=== PATIENT | male | born 1960 | race African-American/Black ===

== ENCOUNTER 2016-08-23 15:10 | Inpatient (IN) | payer OTHER ==
--- NOTE | ~2016-08-23 | DS ---
Unit #: [id number] #: [id number] Patient: FROY KELLY [id number] [address] [place], [place] [address] [id number] MR#: [id number] NAME: FROY KELLY ROOM: 202 Age: 55 Sex: M Admission Date: 08/23/2016 : 1960 Discharge Date: 08/25/2016 Attending Physician: Gurdeep Garcia M.D. Primary Care Physician: Yumiko Larsen M.D. DISCHARGE SUMMARY PRIMARY CARE PHYSICIAN Dr. Yumiko Larsen. ADMITTING DIAGNOSES Chronic obstructive pulmonary disease exacerbation, pulmonary fibrosis, diabetes mellitus. DISCHARGE DIAGNOSES Chronic obstructive pulmonary disease exacerbation, pulmonary fibrosis, diabetes mellitus. HISTORY OF PRESENTING ILLNESS The patient is a 60-year-old gentleman with a past medical history of pulmonary fibrosis and COPD, who is on 2 L of home oxygen, presented to the emergency room with chief complaint of cough and shortness of breath. HOSPITAL COURSE He was started on oxygen, breathing treatments, steroids, and slowly his breathing improved. He is doing clinically better. He does not smoke. I explained him in detail that he needs to avoid people who are smoking. Passive smoking can be as dangerous as an active smoking. He understands. He is doing clinically better. He will be discharged home on tapering dose of oral steroids. PHYSICAL EXAMINATION On the day of the discharge: VITAL SIGNS: Temperature 97.9, pulse rate 79, respiratory rate 16, blood pressure 125/97. GENERAL: The patient is alert and oriented x3, lying in the bed. No acute distress. HEENT: Normocephalic, atraumatic. No icterus. TAVON. Extraocular muscles are intact. NECK: Supple. No JVD. HEART: S1, S2. Regular rate and rhythm. CHEST: Bilateral equal air entry. Clear to auscultation. ABDOMEN: Soft, nontender. EXTREMITIES: No edema. Normal pulses. DISCHARGE MEDICATIONS Metformin 500 mg p.o. b.i.d., Zithromax 250 mg p.o. daily for 2 more days, prednisone tapering dose, albuterol 3 mL mini-nebs q.4 p.r.n. shortness of breath, Symbicort 2 puffs b.i.d. Unit #: [id number] #: [id number] Patient: FROY KELLY FOLLOWUP He is instructed to follow with his primary care in 1 to 2 weeks. Total time spent in his care 28 minutes. Dictated by..Joey Blank/richard TD: 08/26/2016 02:48 JOB #: [id number] DISCHARGE SUMMARY X X DISCHARGE SUMMARY
--- NOTE | ~2016-08-23 | HP ---
Unit #: [id number] #: [id number] Patient: FROY KELLY [id number] [address] [place], [place] [address] [id number] MR#: [id number] NAME: FROY KELLY ROOM: 202 Age: 55 Sex: M Admission Date: 08/23/2016 : 1960 Attending Physician: Gurdeep Garcia M.D. Primary Care Physician: Yumiko Larsen M.D. HISTORY AND PHYSICAL CHIEF COMPLAINT Shortness of breath. HISTORY OF PRESENTING ILLNESS The patient is a 55-year-old -[place] gentleman with a past medical history of COPD, history of pulmonary fibrosis, presented to the emergency room with a chief complaint of cough and shortness of breath which is worsening in the last two days. He denies any fevers, denies any chills. Complains of cough with production of yellowish sputum. He mentions his family members were sick a couple of weeks ago but they are all better. He did not get his flu vaccine this year. In the emergency room, he was noted to be short of breath and did not respond to the breathing treatment. He is getting admitted. Kindly note - I do not have any influenzae swab at this point and labs are being done. Results are partially available. PAST MEDICAL HISTORY 1. History of COPD. 2. Pulmonary fibrosis. 3. Hypertension. 4. Diabetes mellitus. PAST SURGICAL HISTORY None. MEDICATIONS Home medications include: 1. Symbicort 160/4.5 mcg, two puffs twice daily. 2. Albuterol 3 mL nebulizations four times a day. SOCIAL HISTORY He mentions he used to smoke and quit two months ago. Denies alcohol or illicit drugs. FAMILY HISTORY Father had end stage renal disease. He had colon cancer in the past. SCREENING Patient had a screening colonoscopy done in April [address] Darnell Mariee which was essentially negative and he was recommended to have screening colonoscopy in five years. ALLERGIES Unit #: [id number] #: [id number] Patient: FROY KELLY No known drug allergies. REVIEW OF SYSTEMS Complete review of systems was done and negative except for what is mentioned in the HPI. PHYSICAL EXAMINATION VITAL SIGNS: Temperature 98.2, pulse rate 84, respiratory rate 26, blood pressure 115/81. GENERAL: The patient is alert and oriented x3, lying in the bed, in no acute distress. HEENT: Normocephalic, atraumatic. No icterus. TAVON. Extraocular movements intact. NECK: Supple. No JVD. HEART: S1, S2. Regular rate and rhythm. CHEST: Bilateral equal air entry, bilateral expiratory wheeze. ABDOMEN: Soft, nontender. EXTREMITIES: No edema. Normal pulses. DIAGNOSTIC STUDIES LABORATORY: BMP, influenzae swab are pending. CBC shows WBC 7.6, hemoglobin 15.6, platelet count 171. ASSESSMENT AND PLAN 1. Acute hypoxic respiratory failure: He is on 4 L now and he is initially on 2 L of home oxygen. Will give him steroids, breathing treatments and monitor. Will give him IV Solu-Medrol, p.r.n. breathing treatments and will also start him on Zithromax. Will check the influenzae swab. If it is positive, will treat him with Tamiflu. If not, will try to get him an influenzae vaccine at the time of discharge. 2. History of pulmonary fibrosis. 3. History of diabetes mellitus: He mentioned he is not on any influenzae or any medications. Will check an A1c. Will keep on Accu-Cheks and insulin sliding scales. 4. DVT precautions. 5. Further recommendations per hospital course. Dictated by Joey Amin/nedra TD: 08/24/2016 05:37 JOB #: [id number] Unit #: [id number] #: [id number] Patient: FROY KELLY HISTORY AND PHYSICAL X X HISTORY AND PHYSICAL
--- NOTE | ~2016-08-23 | CR72 ---
[facility] A Service of [facility] [place] RADIOLOGY TEXT RESULTS PATIENT: FROY KELLY LOCATION: A : [birth year] UNIT #: [id number] AGE: [address]: Gurdeep Garcia MD SEX: M ORDER DR: [id number] [facility] [address] [facility]. [place], [place] [address] [id number] MR#: [id number] Acc #: [id number] NAME: FROY KELLY : 1960 SEX: M STUDY DATE/TIME: 08/23/2016 14:31 UNIT: [facility] ROOM: [facility] STUDY DESCRIPTION: CR Chest Single View Portable Attending Physician: Gurdeep Garcia M.D. Ordering Physician: Maria T Calvillo M.D. Primary Care Physician: Yumiko Larsen M.D. MEDICAL IMAGING REPORT This report is preliminary unless electronic signature is present EXAM Portable chest, 08/23/2016 HISTORY Shortness of breath for the past 2 days. TECHNIQUE A single AP view of the chest was obtained and compared with 01/07/2016. FINDINGS The heart and mediastinum have a normal configuration with normal heart size. In the lungs extensive infiltrates are seen ini the mid to lower lung mauricio, predominantly reticular accompanied by peripheral blebs. Overall since the previous examination. No significant progression is noted. There is no evidence of pneumothorax. Vascular markings are normal. No pleural fluid is seen. IMPRESSION Extensive chronic interstitial infiltrates in the uha-fi-nxxjh lung mauricio. No new infiltrates are seen since the previous exam. Normal vascular markings. Dictated by... Jassi Lopez M.D. THIS IS AN ELECTRONICALLY VERIFIED REPORT Jassi Lopez M.D. at 08/24/2016 8:20 AM NELL/ros TD: 08/23/2016 21:17 JOB #: [id number] [facility] A Service of [facility] [place] RADIOLOGY TEXT RESULTS PATIENT: FROY KELLY LOCATION: [facility] 202-01 : [birth year] UNIT #: [id number] AGE: [address]: Gurdeep Garcia MD SEX: M ORDER DR: MEDICAL IMAGING REPORT COPY
[2016-08-23 14:39] LABS: POC - CKMB 1.1 ng/mL (0.0-7.9); POC - TROPONIN <0.05 ng/mL (<=0.05)
[~2016-08-23 15:10] MED LIST: ADVAIR 250-501 EAC1 IH; ADVAIR 250-501 EACH; ADVAIR 250-501 EACH IH; ADVAIR 500-501 EACH IH; ALBUTEROL 0.5ML INH; ALBUTEROL MININEB NEB; ALBUTEROL0.63 MG/3 INH; ALBUTEROL17 G1 IH; ALBUTEROL17 GM INH; ATORVASTATIN CA40 MG PO; AUGMENTIN PO; AZITHROMYCIN500 MG PO; COMBIVENT INH14.7 G1 IH; COMBIVENT U/D3 M1 INH; COMBIVENT14.7 GM INH; CYMBALTA PO; CYMBALTA30 MG PO; DUONEB 2.5-0.5 M3 ML NEB; FOLIC ACID PO; GLIPIZIDE10 MG; GLYBURIDE2.5 M1 PO; GUAIFENESIN600 M1 PO; HYDROCHLOROTHIA25 MG PO; LEVAQUIN PO; LEVAQUIN750 MG PO; MEDROL PO; METFORMIN HCL500 M1 PO; MICRO-K10 MEQ PO; MUCAPHED TABLE1 EACH PO; NICOTINE TRANSD14 MG EXT; NICOTINE TRANSD21 MG EXT; OMEPRAZOLE20 M2 PO; OMNICEF300 MG PO; OXYGEN; POTASSIUM CHLO20 ME1 PO; PREDNISONE PO; PREDNISONE1 MG; PREDNISONE10 MG/DOSE PO; PROAIR HFA8.5 GM IH; PROVENTIL INH0.5 ML; SPIRIVA18 MCG INH; SUBOXONE 8 MG-1 EAC1 SL; SYMBICORT INH; THIAMINE HCL100 MG PO; TUDORZA PRESS400 MCG IH; VIBRAMYCIN100 M1 PO; Z-PAK; ZITHROMAX PO
[2016-08-23 17:05] LABS: BASOPHIL# 0.1 X10e3 (0-0.3); BASOPHIL% 0.8 % (0-2.5); EOSINOPHIL# 0.2 X10e3 (0-0.7); EOSINOPHIL% 2.6 % (0.0-7.0); HEMATOCRIT 48.8 % (38.0-50.0); HEMOGLOBIN 15.6 gm/dL (13.0-16.0); MEAN CELL VOLUME 88.5 FL (83-96); MEAN CORPUSCULAR HEMOGLOBIN 28.3 PG (28-34); MONOCYTE# 0.6 X10e3 (0-1.0); MONOCYTE% 7.4 % (3.0-12.0); NEUTROPHIL# 4.8 X10e3 (1.5-7.1); NEUTROPHIL% 63.2 % (40-75); PLATELET COUNT 171 X10e3 (140-420); RED BLOOD COUNT 5.52 X10e (3.90-5.60); RED CELL DISTRIBUTION WIDTH 13.7 % (11.0-15.5); WHITE BLOOD COUNT 7.6 X10e3 (4.0-10.5)
[2016-08-23 17:12] LABS: DIFF IND NO
[2016-08-23] MEDS ORDERED: SYMBICORT INH (17:17)
[2016-08-23] MEDS ORDERED: ALBUTEROL MININEB NEB (17:17)
[2016-08-23 17:58] LABS: ALBUMIN SERUM 4.4 g/dL (3.5-5.0); ALKALINE PHOSPHATASE 84 U/L (32-92); ALT (SGPT) 24 U/L (10-40); AST (SGOT) 20 U/L (10-42); BILIRUBIN, DIRECT 0.2 mg/dL (0.0-0.2); BILIRUBIN,INDIRECT 0.6 mg/dL (0.0-0.9); BILIRUBIN,TOTAL 0.8 mg/dL (0.2-2.0); BLOOD UREA NITROGEN 7 mg/dL (9-23); BUN/CREATININE RATIO 11.66; CALCIUM SERUM 9.8 mg/dL (8.4-10.2); CARBON DIOXIDE 28 mmol/L (22-31); CHLORIDE 99 mmol/L (100-111); CREATININE SERUM 0.6 mg/dL (0.6-1.4); GLOM FILT RATE Estimated ABOVE60 mL/min (>60); GLUCOSE FASTING 119 mg/dL (70-110); POTASSIUM 3.5 mmol/L (3.5-5.1); PROTEIN TOTAL SERUM 7.9 g/dL (6.0-8.3); SODIUM 139 mmol/L (135-145)
[2016-08-23 18:10] LABS: INFLUENZA A NEG (NEG); INFLUENZA B NEG (NEG)
[2016-08-24 05:22] LABS: BASOPHIL% 0.1 % (0-2.5); HEMATOCRIT 47.5 % (38.0-50.0); HEMOGLOBIN 15.3 gm/dL (13.0-16.0); LYMPHOCYTE% 14.5 % (17.0-45.0); MEAN CELL VOLUME 87.9 FL (83-96); MEAN CORPUSCULAR HEMOGLOBIN 28.3 PG (28-34); MEAN CORPUSCULAR HGB CONC 32.2 g/dL (30-36); MEAN PLATELET VOLUME 10.8 FL (6.5-11.5); MONOCYTE% 0.7 % (3.0-12.0); NEUTROPHIL# 5.7 X10e3 (1.5-7.1); NEUTROPHIL% 84.7 % (40-75); RED BLOOD COUNT 5.41 X10e (3.90-5.60); RED CELL DISTRIBUTION WIDTH 13.6 % (11.0-15.5); WHITE BLOOD COUNT 6.7 X10e3 (4.0-10.5)
[2016-08-24 05:52] LABS: BLOOD UREA NITROGEN 13 mg/dL (9-23); BUN/CREATININE RATIO 16.25; CALCIUM SERUM 9.9 mg/dL (8.4-10.2); CARBON DIOXIDE 30 mmol/L (22-31); CHLORIDE 99 mmol/L (100-111); CREATININE SERUM 0.8 mg/dL (0.6-1.4); DIFF IND YES; GLOM FILT RATE Estimated ABOVE60 mL/min (>60); GLUCOSE FASTING 186 mg/dL (70-110); PLATELET COUNT 176 X10e3 (140-420); POTASSIUM 4.4 mmol/L (3.5-5.1); SODIUM 137 mmol/L (135-145)
[2016-08-24 05:59] LABS: PLATELET ESTIMATE NORMAL (NORMAL)
[2016-08-24 06:00] LABS: RBC NORMAL YES
[2016-08-25 06:11] LABS: HEMATOCRIT 48.1 % (38.0-50.0); HEMOGLOBIN 15.3 gm/dL (13.0-16.0); MEAN CELL VOLUME 87.7 FL (83-96); MEAN CORPUSCULAR HEMOGLOBIN 27.8 PG (28-34); MEAN CORPUSCULAR HGB CONC 31.7 g/dL (30-36); MEAN PLATELET VOLUME 10.2 FL (6.5-11.5); RED BLOOD COUNT 5.48 X10e (3.90-5.60); RED CELL DISTRIBUTION WIDTH 13.5 % (11.0-15.5)
[2016-08-25 06:12] LABS: WHITE BLOOD COUNT 19.2 X10e3 (4.0-10.5)
[2016-08-25 06:52] LABS: BLOOD UREA NITROGEN 13 mg/dL (9-23); BUN/CREATININE RATIO 21.66; CALCIUM SERUM 9.8 mg/dL (8.4-10.2); CARBON DIOXIDE 26 mmol/L (22-31); CHLORIDE 103 mmol/L (100-111); CREATININE SERUM 0.6 mg/dL (0.6-1.4); GLOM FILT RATE Estimated ABOVE60 mL/min (>60); GLUCOSE FASTING 163 mg/dL (70-110); POTASSIUM 4.1 mmol/L (3.5-5.1); SODIUM 140 mmol/L (135-145)
[2016-08-25] MEDS ORDERED: PREDNISONE10 MG/DOSE PO (12:15)
[2016-08-25] MEDS ORDERED: AZITHROMYCIN250 MG PO (12:15)
[2016-08-25] MEDS ORDERED: METFORMIN PO (12:19)
== END 2016-08-25 14:27 | disposition home or self-care (01) | DRG 189 ==
LOC: CED 15:10 → CEDOF 17:56 → C2A 20:30
PROVIDERS: Emergency Medicine; Internal Medicine
DX: J96.01 Acute respiratory failure with hypoxia (principal); J44.1 Chronic obstructive pulmonary disease with (acute) exacerbation; J84.10 Pulmonary fibrosis, unspecified; E11.9 Type 2 diabetes mellitus without complications; I10 Essential (primary) hypertension; Z87.891 Personal history of nicotine dependence; Z80.0 Family history of malignant neoplasm of digestive organs
CPT/HCPCS: 36415; 71010; 80048; 80076; 82553; 82947; 83036; 84484; 85025; 85027; 87070; 87205; 87804; 94640; 94664; 94760; 96365; 96366; 96375; 99285; J1650; J1815; J2930; J3475